=== PATIENT | female | born 1980 | race Hispanic/Latino ===

== ENCOUNTER → 2018-11-01 | Outpatient (CLI) | payer OTHER ==
[~2018-11-01] MED LIST: GADOBENATE DIMEGLUMINE 1 ML IV ONE; IOPAMIDOL 300 MG/ML 15ML VIAL IT ONE; LIDOCAINE HCL 1% LOCAL INJ 20 ML VIAL ONE; PRENATAL VITAM1 EACH PO
--- NOTE | 2018-11-01 11:56 | Diagnostic Imaging Report ---
PROCEDURE: Right wrist arthrogram Procedural Personnel Attending physician(s): Marisa Cerna MD Fellow physician(s): None Resident physician(s): None Advanced practice provider(s): None Pre-procedure diagnosis: Right wrist pain Post-procedure diagnosis: Same Indication: Right wrist pain, arthrogram prior to MRI arthrogram. Additional clinical history: None Complications: No immediate complications. IMPRESSION: Fluoroscopically guided right wrist arthrogram. PLAN: Patient was transported to MRI. PROCEDURE SUMMARY: - Fluoroscopically guided right wrist arthrogram. PROCEDURE DETAILS: Pre-procedure Consent: Informed consent for the procedure including risks, benefits and alternatives was obtained and time-out was performed prior to the procedure. Preparation: The site was prepared and draped using maximal sterile barrier technique including cutaneous antisepsis. Anesthesia/sedation Level of anesthesia/sedation: Local 1% lidocaine Wrist arthrogram [employer] Officer image was obtained. Following 1% local lidocaine anesthesia, a 25-gauge needle was advanced to the radial scaphoid joint. 0.5 cc of Isovue contrast was administered to confirm intra-articular positioning. The MRI arthrogram cocktail was made with 10 cc normal saline, 0.1 cc gadolinium base contrast material, and 2 cc Isovue 370. Subsequently, 1.5 cc of this solution was injected into the joint under fluoroscopic guidance. The needle was removed and hemostasis easily achieved. Sterile bandage applied. Radiation Dose Fluoroscopy time (minutes): 0.9 Reference air kerma (mGy): 0.86 Additional Details Additional description of procedure: None Equipment details: None Specimens removed: None Estimated blood loss (mL): Less than 10 Attestation Signer name: Marisa Cerna MD I attest that I was present for the entire procedure. I reviewed the stored images and agree with the report as written. Signed by: Marisa Cerna MD on 11/01/2018 11:53 AM
--- NOTE | 2018-11-01 14:08 | Diagnostic Imaging Report ---
TECHNIQUE: Magnetic resonance imaging of the RIGHT ANKLE was performed WITHOUT injected contrast. COMPARISON: None available. HISTORY: Right ankle pain FINDINGS: LIGAMENTS: Medial Complex: Deltoid complex intact. Lateral Complex: Tibiofibular ligaments intact. Sprain of the anterior talofibular for example axial image 17. Calcaneofibular ligament intact. TENDONS: Medial: Intact Lateral: Intact Anterior: Intact Achilles: Intact BONES: No focal or infiltrative bone marrow replacing abnormality. No acute fracture or osteonecrosis. JOINTS: Cartilage: Mild talonavicular joint degenerative arthrosis Other: Fluid within the joints is within physiologic limits. SOFT TISSUES: Small calcaneal enthesophytes IMPRESSION: Anterior talofibular sprain. No high-grade tear. Signed by: Dr. Rickey Davalos M.D. on 11/01/2018 2:05 PM
--- NOTE | 2018-11-01 14:13 | Diagnostic Imaging Report ---
TECHNIQUE: Magnetic resonance imaging of the RIGHT WRIST was performed after injected contrast, on a 1.5 kori magnet. HISTORY: Pain COMPARISON: None available. FINDINGS: Bone and bone marrow: No focal or infiltrative bone marrow replacing abnormality. No acute fracture or osteonecrosis. The osseous alignment is within normal limits. Joints: Carpal arcs are maintained. The joints spaces are well maintained. Ligaments: Scapholunate: Intact Lunotriquetral: Intact Triangular fibrocartilage complex: Intact Extrinsic ligaments: Limited evaluation. Tendons: The flexor and extensor tendons are intact. Carpal tunnel: The median nerve is within normal limits. Other soft tissues: Otherwise, unremarkable. IMPRESSION: No acute osseous, ligamentous, or tendinous abnormality. Signed by: Dr. Rickey Davalos M.D. on 11/01/2018 2:10 PM
== END ==
LOC: DX 09:58
PROVIDERS: ATTEND Specialist
DX: S93.431D Sprain of tibiofibular ligament of right ankle, subsequent encounter (principal); S63.511D Sprain of carpal joint of right wrist, subsequent encounter
CPT/HCPCS: 25246; 73222; 73721; 77002; A9577; Q9967; 20605; J2001